=== PATIENT | male | born 1955 | race Caucasian/White ===

== ENCOUNTER 2024-11-03 20:46 | Emergency (ER) | payer OTHER, SELFPAY ==
[2024-11-03 21:06] VITALS: BP 160/82; PULSE 106; RESP 20; TEMP 36.9; O2SAT 94
--- NOTE | 2024-11-03 21:15 | XR_ITS ---
Examination: CT abdomen and pelvis without contrast. Coronal 3-D reconstructions. Sagittal 2-D reconstructions. Date and time of exam:November 03, 2024 10:33 PM INDICATIONS: Onset left-sided flank pain today CTDI: vol (mGy): 8.08 DLP: (mGycm): 497 Technique: Axial images of the abdomen have been obtained, 3 mm slice thickness Intravenous contrast material has not been administered. Low dose protocols were performed. One or more of the following dose reduction techniques were used; automated exposure control, adjustment of the mA and/or KV according to patient size, use of iterative reconstruction technique. Findings: No focal liver or splenic lesions No gallstones No pancreatic or adrenal mass 2 mm nonobstructing right renal calculus 1 mm lower pole nonobstructing left renal calculus No hydronephrosis or ureteral calculi Aortic calcification no aneurysmal dilatation No pericecal inflammatory change Colonic diverticulosis, no diverticulitis Mild prostatomegaly No bladder mass or bladder calculi urogram Grade 1 spondylolisthesis L5 on S1 IMPRESSION: Tiny nonobstructing bilateral renal calculi, no hydronephrosis or ureteral calculi
--- NOTE | 2024-11-03 21:15 | XR_ITS ---
Examination: PA chest single view TECHNIQUE: Upright PA chest single view Date and time: November 03, 2024 2121 hours INDICATIONS: Shortness of breath today. FINDINGS: Bronchitis versus early bronchopneumonia at the lung bases. Normal heart size. Prominent osteopenia. IMPRESSION: Bronchitis versus early bronchopneumonia of the lung bases.
--- NOTE | 2024-11-03 21:17 | EDRME_ITS ---
Rapid Medical Screening Exam [facility] Arrival date/time: 11/03/24 20:46 69M with no known PMH (smokes daily) presents to ED with 1 day of L flank/lower back pain that then caused SOB. Patient denies cough and URI symptoms. Chief Complaint: Shortness of Breath/Dyspnea Vital signs: Vital Signs Temperature 98.5 F 11/03/24 21:06 Pulse Rate 106 H 11/03/24 21:06 Respiratory Rate 20 11/03/24 21:06 Blood Pressure 160/82 H 11/03/24 21:06 Pulse Oximetry (%) 94 L 11/03/24 21:06 Oxygen Delivery Method Room Air 11/03/24 21:06
[2024-11-03 22:03] LABS: Basophils # (Auto) 0.1 Thou/mm3 (0.0-0.2); Basophils % (Auto) 1 % (0-2.5); Eosinophils # (Auto) 0.1 Thou/mm3 (0.0-0.5); Eosinophils % (Auto) 1 % (0-10); Hematocrit 43.6 % (41.0-53.0); Hemoglobin 15.4 g/dL (13.5-16.0); Immature Granulocytes % (Auto) 1 % (0-0); Immature Granulocytes Auto 0.06 Thou/mm3 (0.00-0.00); Lymphocytes # (Auto) 1.6 Thou/mm3 (1.0-4.8); Lymphocytes % (Auto) 13 % (10-50); Mean Corpuscular HGB Conc 35.3 g/dl (31.0-37.0); Mean Corpuscular Hemoglobin 29.7 pg (25.0-35.0); Mean Corpuscular Volume 84 fL (80-100); Monocytes # (Auto) 1.1 Thou/mm3 (0.0-0.8); Monocytes % (Auto) 8 % (0-12); Neutrophils # (Auto) 10.1 Thou/mm3 (1.8-7.7); Neutrophils % (Auto) 78 % (37-80); Nucleated Red Blood Cell % 0 /100 WBC (0); Platelet Count 278 Thou/mm3 (140-440); RDW Standard Deviation 39.1 fL (35.1-43.9); Red Blood Count 5.18 Miln/mm3 (4.50-5.90)
[2024-11-03 22:14] LABS: Partial Thromboplastin Time 30.2 Seconds (22.0-36.0); Prothrombin Time 10.5 Seconds (9.0-12.2)
[2024-11-03] MEDS: Aspirin 325 MG TABLET PO (22:15)
[2024-11-03 22:17] LABS: Alanine Aminotransferase 24 U/L (10-49); Albumin, Serum 4.4 gm/dL (3.4-4.8); Albumin/Globulin Ratio 1.4 (1.2-2.2); Alkaline Phosphatase 109 U/L (46-116); Anion Gap 10 (7-16); Aspartate Amino Transferase 26 U/L (0-34); BUN/Creatinine Ratio 12 Ratio (12-20); Bilirubin,Total 0.5 mg/dL (0.3-1.2); Blood Urea Nitrogen 12 mg/dL (9-23); Calcium 8.9 mg/dL (8.3-10.6); Calcium (Corrected) 8.9 mg/dL (8.5-10.1); Chloride 104 mMol/L (98-107); Globulin 3.2 gm/dL (2.3-3.5); Glucose 111 mg/dL (74-106); Lipase 33 U/L (12-53); Magnesium 1.9 mg/dL (1.6-2.6); Osmolality,Calculated 278 (275-295); Potassium 3.6 mMol/L (3.4-5.1); Sodium 139 mMol/L (136-145); Total Protein 7.6 gm/dL (5.7-8.2); Troponin I < 0.002 ng/mL (0.0-0.045); eGFR > 60 See Note
[2024-11-03 22:29] LABS: B-Type Natriuretic Peptide < 20 pg/mL (0-100)
[2024-11-03 22:50] LABS: Collection Type, Urine Clean Catch
[2024-11-03 23:07] LABS: Bilirubin,Urine Negative (Negative); Blood,Urine Negative (Negative); Clarity,Urine Clear (Clear/Hazy); Color,Urine Lt-Yellow (Lt Yel-Yel); Culture Indicated,Urine Not Indicated; Glucose, Urine Negative (Negative); Ketones,Urine Negative (Negative); Leukocyte Esterase,Urine Negative (Negative); Nitrite,Urine Negative (Negative); Protein,Urine Negative (Neg - Trace); Specific Gravity,Urine 1.009 (1.001-1.035); Urobilinogen,Urine Negative mg/dL (0.0-1.0)
[2024-11-03 23:15] LABS: RBC,Urine 2 /hpf (0-3)
[2024-11-03 23:17] LABS: Mucus,Urine 2+ /lpf
[2024-11-03 23:18] LABS: Squamous Epithelial Cell,Urine 3 /hpf (0-5); WBC,Urine 3 /hpf (0-5)
[2024-11-03 23:26] LABS: Amphetamine/Methamp Scrn,U Negative (Negative); Barbiturate Screen,Urine Negative (Negative); Benzodiazepines Screen,Urine Negative (Negative); Benzoylecgonine Screen, Ur Negative (Negative); Fentanyl Screen,Urine Negative (Negative); Opiate Screen,Urine Negative (Negative); THC Screen,Urine Negative (Negative)
[2024-11-04 01:25] VITALS: BP 128/83; PULSE 95; RESP 18; O2SAT 94
--- NOTE | 2024-11-04 01:44 | PD.EDABDPN ---
ED Abdominal Pain RME/HPI General Chief Complaint: Shortness of Breath/Dyspnea Stated complaint: DIFF BREATHING Time seen by provider: 11/04/24 01:28 Arrival date/time: 11/03/24 20:46 RME / HPI RME / HPI narrative: The patient is a 69-year-old male with significant past medical history of chronic smoking, quit 2 months ago presented to ED with chief complaint of bilateral flank pain for 2 days. He reported that he started having bilateral flank pain 2 days ago, and he is pain worsened and later started having SOB. He denied any lightheadedness, headache, sore throat, chest pain, any changes in bowel or bladder habit, leg swelling, fever or chills, nausea or vomiting. Related Data Previous Rx's ?Medication ?Instructions ?Recorded acetaminophen 325 mg tablet 325 mg PO QID PRN pain #20 tabs 11/04/24 amoxicillin 875 mg-potassium 1 tab PO BID #13 tabs 11/04/24 clavulanate 125 mg tablet azithromycin 250 mg tablet 250 mg PO QDAY #4 tabs 11/04/24 tamsulosin 0.4 mg capsule 0.4 mg PO QDAY PRN abdominal pain 11/04/24 #10 caps Allergies Allergy/AdvReac Type Severity Reaction Status Date / Time No Known Allergies Allergy Verified 11/03/24 20:50 Review of Systems Review of Systems Systems Reviewed: All systems reviewed, normal except as documented ED Exam Narrative Physical exam: General: No acute distress, Alert and Oriented x 3 HEENT: Moist mucous membranes, oropharynx clear Neck: Supple, No masses, No JVD CVS: S1S2 Regular rate and rhythm, No murmurs, rubs or gallops Lungs: Clear to auscultation with no accessory use, no wheeze no rhonchi Abd: Soft, NT/ND, +BS, no organomegaly, bilateral flank tenderness Ext: No edema, warm and well perfused Skin: No rash Psych: Appropriate mood and affect Course Quality Measures none Orders Category Date Time Status EKG (ED ONLY) *Do not use* NOW Care 11/03/24 20:[address] abdomen pelvis wo con Stat Exams 11/03/24 21:15 Completed EKG (ED Only) Stat Exams 11/03/24 20:47 Ordered XR chest 1V portable Stat Exams 11/03/24 21:15 Completed B-Type Natriuretic Peptide Stat Lab 11/03/24 21:29 Completed CBC Stat Lab 11/03/24 21:29 Completed Comprehensive Metabolic Panel Stat Lab 11/03/24 21: Completed Drug Screen,Urine Stat Lab 11/03/24 22:35 Completed Lipase Stat Lab 11/03/24 21: Completed Magnesium Stat Lab 11/03/24 21: Completed Partial Thromboplastin Time Stat Lab 11/03/24 21: Completed Prothrombin Time with INR Stat Lab 11/03/24 21: Completed Troponin I Stat Lab 11/03/24 21: Completed Urinalysis, C/S if Indicated Stat Lab 11/03/24 22:35 Completed Amoxicillin/Pot Clav 875 [Augmentin 875] Med 11/04/24 01:55 Discontinued 1 tab PO X1 ONE Aspirin Med 11/03/24 21:16 Discontinued 325 mg PO X1 ONE Azithromycin Po [Zithromax PO] Med 11/04/24 01:55 Discontinued 500 mg PO X1 ONE Tamsulosin HCl [Flomax] Med 11/04/24 01:46 Discontinued 0.4 mg PO X1 ONE Vital Signs Vital signs: Vital Signs Temperature 98.5 F 11/03/24 21:06 Pulse Rate 106 H 11/03/24 21:06 Respiratory Rate 20 11/03/24 21:06 Blood Pressure 160/82 H 11/03/24 21:06 Pulse Oximetry (%) 94 L 11/03/24 21:06 Oxygen Delivery Method Room Air 11/03/24 21:06 Abdominal Pain MDM MDM Narrative MDM Narrative:: The patient is a 69-year-old male with significant past medical history of chronic smoking, quit 2 months ago presented to ED with chief complaint of bilateral flank pain for 2 days. He reported that he started having bilateral flank pain 2 days ago, and he is pain worsened and later started having SOB. He denied any lightheadedness, headache, sore throat, chest pain, any changes in bowel or bladder habit, leg swelling, fever or chills, nausea or vomiting. The patient's initial vitals were BP 160/82, pulse 106, RR 20, temp 98.5, O2 sat 94% on room air. CBC revealed white count of 13.0, likely reactive, CMP fairly stable, troponin less than 0.002, UA negative, U tox negative, chest x-ray revealed Bronchitis versus early bronchopneumonia at the lung base. Abdomen/pelvis CT revealed Tiny nonobstructing bilateral renal calculi, no hydronephrosis or ureteral calculi. 2 mm nonobstructing right renal calculus, 1 mm lower pole nonobstructing left renal calculus. Patient data External records reviewed:: None Clinical information provided by:: patient Social determinants that could affect healthcare access:: none Patient has the following chronic illnesses:: See above How is presenting disease/condition affected by chronic disease/condition?: exacerbated by Evaluation data The following diagnostics were reviewed and interpreted by me:: lab results and radiology exam(s) Lab and/or radiology exams considered but not ordered:: None Interpretation Summary: See above Medications / Prescriptions Medications or Prescriptions considered but not ordered:: None Medication administrations:: Medication Administration History Discontinued Medications Amoxicillin/Clavulanate Potassium (Amoxicillin/Pot Clav 875 Tablet) 1 tab PO X1 ONE Stop: 11/04/24 01:56 Last Admin: 11/04/24 02:09 Dose: 1 tab Aspirin (Aspirin 325 Mg Tablet) 325 mg PO X1 ONE Stop: 11/03/24 21:17 Last Admin: 11/03/24 22:15 Dose: 325 mg Documented By: Azithromycin (Azithromycin 250 Mg Tablet) 500 mg PO X1 ONE Stop: 11/04/24 01:56 Last Admin: 11/04/24 02:09 Dose: 500 mg Tamsulosin HCl (Tamsulosin Hcl 0.4 Mg Capsule) 0.4 mg PO X1 ONE Stop: 11/04/24 01:47 Last Admin: 11/04/24 02:07 Dose: 0.4 mg See above Consultations Consultation(s) initiated? (list below): No Diagnosis Differential diagnosis abdominal pain: calculus of kidney and diverticulitis Most likely diagnosis given after review of the tests above:: Calculus of bilateral kidneys Admission Indicated Admission indicated?: not indicated Admission Request Was there a request for admission?: No Disposition Plan Disposition Plan: Discharge Discharge Attestation Discharge Attestation: The patient and all family members were given an opportunity to ask questions and understood the discharge instructions. Discharge instructions specifically effects, indications for sooner follow up or return to the emergency department, and the expected course of current diagnosis. Patient condition: Stable Discharge Plan Plan Patient Disposition: HOME (Self Care) Prescriptions/Referrals Prescriptions/Med Rec: New tamsulosin 0.4 mg capsule 0.4 mg PO QDAY PRN (Reason: abdominal pain) Qty: 10 0RF acetaminophen 325 mg tablet 325 mg PO QID PRN (Reason: pain) Qty: 20 0RF amoxicillin-pot clavulanate 875-125 mg tablet 1 tab PO BID Qty: 13 0RF azithromycin 250 mg tablet 250 mg PO QDAY Qty: 4 0RF Referrals: No Primary/Family,Physician [Primary Care Provider] - In 1 week Problem List Clinical Impression: Bilateral nephrolithiasis, Community acquired pneumonia Patient/Caregiver Discharge Instructions Education Materials: Chest and Lung Problems, ED Kidney Stone w/ Colic Additional Instructions: You have been discharged by Dr. Sims on following recommendations: Please follow-up with your PCP within 1 week of discharge You have been started on: - Tamsulosin 0.4 mg daily as needed for flank pain - Tylenol 325 mg up to 4 times daily as needed for pain - Azithromycin 250 Mg daily for 4 days - Amoxicillin-clavulanate 875/125 mg twice daily for 7 days - Recommended to drink 3 to 4 L of water daily -Recommended to return back to emergency department if your symptoms persists or worsens Print Language: Persian Stand Alone Forms: [employer] Award Info., Patient Portal Info Letter MD Attestation MD Attestation I, Dr. Carolina, have reviewed the history, exam, and assessment of the patient. I have evaluated the patient independently and agree with the plan of care documented by the resident Dr. Sims. All diagnostic studies were reviewed and discussed. I confirm the diagnosis as documented by the resident. I was present during the Medical Decision Making for this patient. The patient?s plan of care was created between myself and the resident and consistent with our discussion of the patient?s case.
[2024-11-04] MEDS: TAMSULOSIN HCL 0.4 MG CAPSULE PO (02:07)
[2024-11-04] MEDS: AMOXICILLIN/POT CLAV 875 TABLET 1 TAB PO (02:09)
[2024-11-04] MEDS: AZITHROMYCIN 250 MG TABLET 500 MG PO (02:09)
[2024-11-04 03:25] VITALS: RESP 18
== END 2024-11-04 03:26 | disposition home or self-care (01) ==
PROVIDERS: Physician Assistant; Emergency Provider Student in an Organized Health Care Education/Training Program
DX: J18.9 Pneumonia, unspecified organism (principal); N20.0 Calculus of kidney; Z87.891 Personal history of nicotine dependence
CPT/HCPCS: 36415; 71045; 74176; 80053; 80307; 81001; 83690; 83735; 83880; 84484; 85025; 85610; 85730; 93005; 99284; A9270